=== PATIENT | female | born 1975 ===

== ENCOUNTER → 2018-11-23 | Outpatient (CLI) | payer OTHER ==
[2018-11-23 12:44] LABS: Alanine Aminotransfer (ALT/SGP 29 U/L (12-78); Albumin, Blood 3.5 g/dL (3.4-5.0); Albumin/Globulin Ratio 1.1 (0.8-1.8); Alk Phos 48 U/L (50-136); Aspartate Aminotrans (AST/SGOT 19 U/L (12-37); Bilirubin, Direct 0.1 mg/dL (0.0-0.3); Bilirubin, Indirect 0.4 mg/dL (0.1-0.7); Bilirubin, Total 0.5 mg/dL (0.1-1.0); Globulin, Blood 3.3 g/dL (2.2-4.0); Total Protein, Blood 6.8 g/dL (6.4-8.2); Valproic Acid 77.8 ug/mL (50.0-100.0)
== END | disposition home or self-care (01) ==
LOC: LAB SHORT 12:25 → LAB 12:25
PROVIDERS: Psychiatry & Neurology Psychiatry
DX: F31.12 Bipolar disorder, current episode manic without psychotic features, moderate (principal)
CPT/HCPCS: 80076; 80164